=== PATIENT | female | born 1945 | race Caucasian/White ===

== ENCOUNTER 2017-01-13 08:03 | Observation (INO) | payer MEDICARE ==
[2017-01-13] VITALS (7 sets, daily range): BP systolic 105–194; BP diastolic 62–99
[~2017-01-13] VITALS: Ht 167.6 cm; Wt 76.3 kg
[~2017-01-13 08:03] MED LIST: B COMPLETE PO; B-12250 MCG OR; BL POTASSIUM99 MG OR; DOXYCYC MONO100 M1 PO; E400400 UNIT OR; FLUOCINONIDE0.051 TOP; GARLIC300 MG PO; GINKOBA40 MG PO; KEFLEX500 MG PO; LORTAB5 PO; LOTRISONE CREAM15 GM EX; MULTIVITAM10 PO; QC IBUPROFEN200 M1 OR; VITAMIN C500 MG PO; [UNRECOGNIZED DRUG - OTHER] PO
--- NOTE | 2017-01-13 08:13 | NUR ---
PT TO ROOM FOR TREATMENT VIA [facility]
[2017-01-13 08:44] LABS: HEMOGLOBIN 14.9 g/dl (12.0-16.0); IMMATURE GRANULOCYTES 0.6 % (0.0-1.0); MEAN CELL VOLUME 96.5 fL CALC (80.0-100.0); MEAN CORPUSCULAR HGB 32.7 pG CALC (26.0-32.0); MEAN CORPUSCULAR HGB CONC 33.9 g/L CALC (32.0-36.0); NEUT# 4.64 thou/uL (2.00-7.15); RED BLOOD COUNT 4.56 mill/uL (4.20-5.60); RED CELL DISTRI WIDTH 12.4 % (11.5-15.5)
[2017-01-13 09:02] LABS: ALBUMIN 4.2 g/dL (3.2-5.0); ALKALINE PHOSPHATASE 92 u/l (38-126); ANION GAP 17 (6-22 (CALC)); BILIRUBIN, TOTAL 0.7 mg/dL (0.0-1.4); BUN 19 mg/dL (8-23); BUN/CREATININE RATIO 25 (12-20 (CALC)); CALCIUM 9.4 mg/dL (8.4-10.2); CARBON DIOXIDE 25 mmol/l (22-30); CHLORIDE 109 mmol/l (95-108); CREATININE 0.8 mg/dL (0.5-1.0); GFR > 60 ML/MIN (>=60 (CALC)); GFR FOR AFR.AMER. > 60 ML/MIN (>=60 (CALC)); GLUCOSE 125 mg/dL (82-115); POTASSIUM 3.4 mmol/l (3.5-5.1); SGOT/AST 30 u/l (9-36); SGPT/ALT 29 u/l (11-66); SODIUM 147 mmol/l (137-146); TOTAL PROTEIN 7.7 g/dL (6.3-8.2)
[2017-01-13 09:10] LABS: MYOGLOBIN 37 ng/mL (0 - 62)
--- NOTE | 2017-01-13 09:15 | NUR ---
PT RESTING ON STRETCHER, DENIES COMPLAINTS. ASSISTED TO BEDSIDE COMMODE. URINE SPECIMEN COLLECTED.
[2017-01-13 10:01] LABS: URINE BILIRUBIN - DIPSTICK NEGATIVE (NEGATIVE); URINE BLOOD DIPSTICK NEGATIVE (NEGATIVE); URINE CLARITY CLEAR; URINE COLOR YELLOW; URINE GLUCOSE - DIPSTICK NEGATIVE (NEGATIVE); URINE KETONE NEGATIVE (NEGATIVE); URINE LEUK ESTERASE NEGATIVE (NEGATIVE); URINE NITRITE - DIPSTICK NEGATIVE (Negative); URINE PH 7.5 (4.5-8.0); URINE PROTEIN - DIPSTICK NEGATIVE (NEG-TRACE); URINE UROBILINOGEN - DIPSTICK 0.2 E.U./dL (0.2)
--- NOTE | 2017-01-13 10:30 | NUR ---
ADVISED OF WAIT TIME, PT VERBALIZES UNDERSTANDING. CALL LIGHT IN REACH. DENIES COMPLAINTS.
[2017-01-13] MEDS ORDERED: BACLOFEN20 MG PO (11:02)
[2017-01-13] MEDS ORDERED: DICLOFENAC SODI75 MG PO (11:02)
--- NOTE | 2017-01-13 11:45 | NUR ---
MED REC COMPLETED. PT DENIES COMPLAINTS OR QUESTIONS. CALL LIGHT IN REACH.
--- NOTE | 2017-01-13 12:11 | NUR ---
REPORT PROVIDED TO LINCOLN RIBEIRO
--- NOTE | 2017-01-13 12:15 | NUR ---
Admission Note Report Given to: SBAR PRINTED TO FLOOR Transported by: Wheelchair X Stretcher Transported with: X Nurse Transporter X Patent IV O2 X Bottom Saw Operator
--- NOTE | 2017-01-13 12:45 | NUR ---
PT ARRIVED TO THE FLOOR VIA STRETCHER AND ONE PERSON ASSISTANCE FROM THE ER. PT ALERT AND ORIENTATED. AMBULATORY TO SCALE AND TO BED. PT ORIENTATED TO ROOM, RIGHTS, RESPONSIBILITIES AND CALL LIGHT. PT HISTORY OBTAINED, AND ASSESSMENT PERFORMED. INSTRUCTED PT TO CALL FOR ASSISTANCE, PT VERBALIZES UNDERSTANDING.
--- NOTE | 2017-01-13 16:00 | NUR ---
PT REPORTS INCREASED PAIN TO HER LEFT CHEST AND SKIN IRRIATION R/T CARDIAC LEADS. PRN HYDRALAZINE GIVEN BY RN WITH SOMEWHAT GOOD EFFECT SO FAR. BLOOD PRESSURE DOWN TO 185/88 HR 79. PT TEARFUL AND STATES THAT NO ONE BELIEVES HER PAIN. XANAX GIVEN WELL AND TLC. WILL CONTINUE TO MONITOR.
--- NOTE | 2017-01-13 18:21 | NUR ---
PT SITTING UP NOW TO EAT DINNER. ZOFRAN GIVEN FOR NAUSEA AND ENCOURAGED TO EAT SLOW IN SMALL AMOUNTS TO AVOID FURTHER NAUSEA. STATES THAT CHEST PAIN HAS DECREASED SOMEWHAT, CURRENTLY 10/24. PT LAUGHING AND SMILING AT THIS TIME. SPLINT REMAINS TO RIGHT ARM PER PT REQUEST TO AVOID BENDING ARM R/T DISCFORT AT IV SITE TO [facility]. SAFETY MEASURES IN PLACE. CALL LIGHT WITHIN REACH.
--- NOTE | 2017-01-13 19:00 | NUR ---
RECEIVED CHANGE OF SHIFT REPORT FROM AARON CLARKE. PATIENT SITTING UP IN BED. REPORT SOME DISCOMFORT WHICH IS TOLERABLE. WILL CONTINUE TO MONITOR. PATIENT INDICATED THAT SHE VOMOTED AND HER STOMACH FELT MUCH BETTER.
--- NOTE | 2017-01-14 | NUR ---
PATIENT RESTING QUIETLY WITH EYES CLOSED AND APPEARS TO BE ASLEEP. NO APPARENT ACUTE DISTRESS NOTED AT THIS TIME.
--- NOTE | 2017-01-14 04:00 | NUR ---
PATIENT AWAKE AND UP TO BSC AT THIS TIME. NO APPARENT ACUTE DISTRESS NOTED.
[2017-01-14 04:03] VITALS: BP 123/81
[2017-01-14 06:54] LABS: CHOLESTEROL HDL RATIO 4.9 (<4.4 (CALC))
--- NOTE | 2017-01-14 07:00 | NUR ---
RECEIVED BEDSIDE REPORT FROM GABBI STARK. RESTING IN BED WITH EYES CLOSED, AWAKENS EASILY. RESPS EVEN AND UNLABORED ON ROOM AIR, TELE MONITOR IN PLACE. VOICES NO NEEDS AT THIS TIME. PLAN OF CARE DISCUSSED. SAFETY PRECAUTIONS REINFORCED. BED IN LOWEST POSITION WITH WHEELS LOCKED. CALL LIGHT WITHIN REACH. ENCOURAGED PT TO CALL FOR ANY NEEDS.
[2017-01-14 07:56] VITALS: BP 133/72
--- NOTE | 2017-01-14 10:05 | NUR ---
DR HAYWARD IN WITH PT, NEW ORDERS RECEIVED.
[2017-01-14] MEDS ORDERED: BAYER CHEWABLE81 MG PO (10:30)
[2017-01-14] MEDS ORDERED: LOVASTATIN40 M1 PO (10:31)
[2017-01-14] MEDS ORDERED: MEDDOSEPAK PO (10:32)
[2017-01-14] MEDS ORDERED: TRAMADOL HCL50 MG PO (10:32)
[2017-01-14] MEDS ORDERED: PRILOSEC20 MG PO (10:32)
--- NOTE | 2017-01-14 11:10 | NUR ---
SITTING IN BEDSIDE CHAIR. RESPS EVEN AND UNLABORED ON ROOM AIR, TELE MONITOR IN PLACE. MEDICATED WITH TRAMADOL 50MG PO FOR C/O 8/10 LOW BACK AND LEFT SIDED CHEST PAIN. CALL LIGHT WITHIN REACH. WILL CONTINUE TO MONITOR.
--- NOTE | 2017-01-14 12:41 | NUR ---
Discharge instructions given. Patient verbalizes understanding of same. Discharged in stable condition via Wheelchair to Home with friend. All belongings sent with pt.
== END 2017-01-14 12:40 | disposition home or self-care (01) ==
LOC: ED 08:03 → ED-I 10:32 → ED 11:13 → MS2 11:14
PROVIDERS: Emergency Medicine; ADMIT Internal Medicine; ATTEND Internal Medicine
DX: R07.9 Chest pain, unspecified (principal); M54.42 Lumbago with sciatica, left side; I25.10 Atherosclerotic heart disease of native coronary artery without angina pectoris; E78.5 Hyperlipidemia, unspecified; R94.6 Abnormal results of thyroid function studies; Z86.73 Personal history of transient ischemic attack (TIA), and cerebral infarction without residual deficits

== ENCOUNTER 2017-08-09 18:14 | Emergency (ER) | payer MEDICARE ==
[~2017-08-09] VITALS: Ht 167.6 cm; Wt 78.4 kg
[~2017-08-09 18:14] MED LIST changes: +BACLOFEN20 MG PO; +BAYER CHEWABLE81 MG PO; +DICLOFENAC SODI75 MG PO; +LOVASTATIN40 M1 PO; +MEDDOSEPAK PO; +PRILOSEC20 MG PO; +TRAMADOL HCL50 MG PO
[2017-08-09] MEDS ORDERED: BENADRYL 25MG C25 MG PO (18:39)
[2017-08-09] MEDS ORDERED: DELTASONE20 MG PO (18:43)
[2017-08-09] MEDS ORDERED: VISTARIL25 MG PO (18:43)
[2017-08-09 19:04] VITALS: BP 146/82
== END 2017-08-09 19:19 | disposition home or self-care (01) ==
LOC: ED 18:14
DX: L30.9 Dermatitis, unspecified (principal); L40.9 Psoriasis, unspecified

== ENCOUNTER 2022-08-21 19:45 | Emergency (ER) | payer MEDICARE ==
[~2022-08-21] VITALS: Ht 162.6 cm; Wt 73.0 kg
[~2022-08-21 19:45] MED LIST changes: +BENADRYL 25MG C25 MG PO; +DELTASONE20 MG PO; +MUPIROCIN2 % EX; +VISTARIL25 MG PO
[2022-08-21 22:34] VITALS: BP 161/93
== END 2022-08-21 22:34 | disposition home or self-care (01) ==
LOC: ED 19:45
DX: S90.412A Abrasion, left great toe, initial encounter (principal); S90.112A Contusion of left great toe without damage to nail, initial encounter; S90.122A Contusion of left lesser toe(s) without damage to nail, initial encounter; W20.8XXA Other cause of strike by thrown, projected or falling object, initial encounter; M20.42 Other hammer toe(s) (acquired), left foot

== ENCOUNTER 2022-10-02 09:04 | Observation (INO) | payer MEDICARE ==
[~2022-10-02] VITALS: Ht 162.6 cm; Wt 77.0 kg
[2022-10-02] VITALS (12 sets, daily range): BP systolic 150–198; BP diastolic 80–112
[2022-10-02 09:31] LABS: BASO% 0.7 % (0-3); EOS% 2.4 % (0-8); HEMATOCRIT 41.8 % (37.0-47.0); HEMOGLOBIN 13.4 g/dl (12.0-16.0); IMMATURE GRANULOCYTES 0.4 % (0.0-5.0); LYMPH% 11.4 % (15-41); MEAN CORPUSCULAR HGB 31.1 pG CALC (26.0-32.0); MEAN CORPUSCULAR HGB CONC 32.1 g/dL CAL (32.0-36.0); MONO% 10.3 % (2-13); NEUT# 8.66 thou/uL (2.00-7.15); NEUT% 74.8 % (42-76); RED BLOOD COUNT 4.31 mill/uL (4.20-5.60); RED CELL DISTRI WIDTH 12.7 % (11.5-15.5)
[2022-10-02 09:53] LABS: ALBUMIN 4.1 g/dL (3.2-5.0); ALKALINE PHOSPHATASE 120 u/l (38-126); BUN 17 mg/dL (8-23); BUN/CREATININE RATIO 24 (12-20 (CALC)); CARBON DIOXIDE 25 mmol/l (22-30); CHLORIDE 105 mmol/l (95-108); CREATININE 0.7 mg/dL (0.5-1.0); GFR FOR AFR.AMER. > 60 ML/MIN (>=60 (CALC)); GFR OTHER RACES > 60 ML/MIN (>=60 (CALC)); POTASSIUM 3.9 mmol/l (3.5-5.1); SGOT/AST 29 u/l (9-36); TOTAL PROTEIN 7.1 g/dL (6.3-8.2)
[2022-10-02 09:54] LABS: ANION GAP 12 (6-22 (CALC)); BILIRUBIN, TOTAL 0.3 mg/dL (0.02-1.3); SODIUM 138 mmol/l (137-146)
[2022-10-03 00:23] VITALS: BP 149/68
[2022-10-03 04:35] VITALS: BP 137/63
[2022-10-03 05:09] LABS: EOS% 3.8 % (0-8); HEMATOCRIT 40.3 % (37.0-47.0); HEMOGLOBIN 13.2 g/dl (12.0-16.0); IMMATURE GRANULOCYTES 0.1 % (0.0-5.0); MEAN CELL VOLUME 97.1 fL CALC (80.0-100.0); MEAN CORPUSCULAR HGB 31.8 pG CALC (26.0-32.0); MEAN CORPUSCULAR HGB CONC 32.8 g/dL CAL (32.0-36.0); MONO% 13.8 % (2-13); NEUT# 5.37 thou/uL (2.00-7.15); NEUT% 64.3 % (42-76); RED BLOOD COUNT 4.15 mill/uL (4.20-5.60); RED CELL DISTRI WIDTH 12.8 % (11.5-15.5)
[2022-10-03 05:29] LABS: ALBUMIN 3.6 g/dL (3.2-5.0); ALKALINE PHOSPHATASE 88 u/l (38-126); ANION GAP 11 (6-22 (CALC)); BUN 12 mg/dL (8-23); BUN/CREATININE RATIO 18 (12-20 (CALC)); CARBON DIOXIDE 25 mmol/l (22-30); CHLORIDE 107 mmol/l (95-108); CREATININE 0.7 mg/dL (0.5-1.0); GFR FOR AFR.AMER. > 60 ML/MIN (>=60 (CALC)); GFR OTHER RACES > 60 ML/MIN (>=60 (CALC)); MAGNESIUM 2.2 mg/dL (1.6-2.3); POTASSIUM 3.9 mmol/l (3.5-5.1); SGOT/AST 25 u/l (9-36); SODIUM 139 mmol/l (137-146); TOTAL PROTEIN 6.4 g/dL (6.3-8.2)
[2022-10-03 05:31] LABS: BILIRUBIN, TOTAL 0.5 mg/dL (0.02-1.3)
[2022-10-03 06:45] VITALS: BP 140/78
[2022-10-03 10:33] VITALS: BP 143/68
[2022-10-03] MEDS ORDERED: ASPIRIN 81 LOW81 MG PO (11:26)
[2022-10-03] MEDS ORDERED: COZAAR25 MG PO (11:26)
== END 2022-10-03 14:09 | disposition home or self-care (01) ==
LOC: ED 09:04 → MS2 10:30 → ED 10:34 → MS2 10-03 14:09
PROVIDERS: Family Medicine; ADMIT Internal Medicine; ATTEND Internal Medicine
DX: R07.9 Chest pain, unspecified (principal); I10 Essential (primary) hypertension; Z86.73 Personal history of transient ischemic attack (TIA), and cerebral infarction without residual deficits